=== PATIENT | female | born 2000 | race Caucasian/White ===

== ENCOUNTER 2019-05-26 15:21 | Emergency (ER) | payer OTHER ==
--- NOTE | 2019-05-26 15:48 | UC ---
Complaint Female HPI - HPI Summary HPI Summary: 19 yo female presents with urinary symptoms. She tells me that for the last 3 months she has been noticing that twice a month for 2-3 days she has urinary burning and frequency that will resolve without treatment or intervention. She notes that she gained ~10lbs unintentionally over the last month. She was scheduled to see OBGYN this , but they cancelled due to COVID concerns - - this was her initial appt for routine PAP and she was going to bring up her urinary complaint. She is sexually active, but has an IUD. She has family hx of diabetes, but no other known diseases. She has been tested via her primary for thyroid issues and diabetes over the last few years and everything has been normal. She denies SOB, chest pain, abdominal pain, n/v/d/c, flank pain, hematuria, vaginal bleeding or discharge. - History Of Current Complaint Stated Complaint: URINARY COMPLAINT Time Seen by Provider: 05/26/19 15:48 Hx Obtained From: Patient Onset/Duration: Gradual Onset Timing: Intermittent Severity Initially: Mild Severity Currently: Mild Pain Intensity: 4 Pain Scale Used: 0-10 Numeric - Allergies/Home Medications Allergies/Adverse Reactions: Allergies Allergy/AdvReac Type Severity Reaction Status Date / Time trazodone Allergy Severe See Comment Verified 05/26/19 16:04 Home Medications: Home Medications cloNIDine TAB* [Catapres 0.1 MG TAB*] 0.5 mg PO DAILY 05/26/19 [History Confirmed 05/26/19] PMH/Surg Hx/FS Hx/Imm Hx - Additional Past Medical History Additional PMH: Chronic fatigue IBS - Surgical History Surgical History: None - Family History Known Family History: Positive: None - Social History Lives: With Family Alcohol Use: None Substance Use Type: None Smoking Status (MU): Never Smoked Tobacco Review of Systems All Other Systems Reviewed And Are Negative: No Constitutional: Positive: Negative Skin: Positive: Negative Eyes: Positive: Negative ENT: Positive: Negative Respiratory: Positive: Negative Cardiovascular: Positive: Negative Gastrointestinal: Positive: Negative Genitourinary: Positive: Dysuria Neurovascular: Positive: Negative Musculoskeletal: Positive: Negative Neurological/Mental Status: Positive: Negative Psychological: Positive: Negative Physical Exam - Summary Physical Exam Summary: GENERAL: NAD. WDWN. No pain distress. SKIN: No rashes, sores, or open wounds. HEENT: Head: AT/NC Eyes: PERRLA. EOM intact. Conjunctiva clear without inflammation or discharge. Ears: Hearing grossly normal. TMs intact, no bulging, erythema, or edema. Nose: Nasal mucosa pink and moist. NTTP maxillary and frontal sinus. Throat: Posterior oropharynx without exudates, erythema, or tonsillar enlargement. Uvula midline. NECK: Supple. Nontender. No lymphadenopathy. CHEST: CTAB. No r/r/w. No accessory muscle use. Breathing comfortably and in no distress. CV: RRR. Pulses intact. Brisk cap refill. ABDOMEN: Soft. NTTP. No distention or guarding. No CVA tenderness. Bowel sounds present NEURO: Alert. PSYCH: Age appropriate behavior. Triage Information Reviewed: Yes Vital Signs: Vital Signs: Temp Pulse Resp BP Pulse Ox 98.3 F 68 12 120/75 99 05/26/19 15:52 05/26/19 15:52 05/26/19 15:52 05/26/19 15:52 05/26/19 15:52 Laboratory Tests 05/26/19 05/26/19 16:13 16:15 POC Urine Color Yellow POC Urine Clarity Clear POC Urine pH 8.5 POC Ur Specif [place] 1.015 POC Urine Protein Negative POC Ur Glucose (UA) Negative POC Urine Ketones Negative POC Urine Blood Negative POC Urine Nitrite Negative POC Urine Bilirubin Negative POC Urine Urobilinogen 0.2 POC U Leukocyte Esteras Negative POC Ur Test Negative Vital Signs Reviewed: Yes Complaint Female Dx - Course Course Of Treatment: UA negative/normal. Urine negative. Glucose fingerstick 85. I am unsure the cause of pt's symptoms, but discussed referral to Urologist or to have her keep her rescheduled appt with her OBGYN for further evaluation of this or further evaluation/pelvic exam/us today. She wishes to have a referral to Urology at this time. - Differential Dx/Diagnosis Provider Diagnosis: Dysuria Discharge ED - Sign-Out/Discharge Documenting (check all that apply): Patient Departure All imaging exams completed and their final reports reviewed: No Studies - Discharge Plan Condition: Stable Disposition: HOME Patient Education Materials: Dysuria (ED) Referrals: No Primary Care Phys,NOPCP [Primary Care Provider] - Austin Flores MD [Medical Doctor] - As Soon As Possible Additional Instructions: Your urine testing and exam were normal today. I recommend that you call Urology at the number below to schedule an appointment for further evaluation. - Billing Disposition and Condition Condition: STABLE Disposition: Home
[2019-05-26 16:02] VITALS: BP 120/75
== END 2019-05-26 16:30 | disposition home or self-care (01) ==
LOC: UCEAST 15:21
DX: R30.0 Dysuria (principal); K58.9 Irritable bowel syndrome, unspecified; Z88.8 Allergy status to other drugs, medicaments and biological substances
CPT/HCPCS: 81003; 84702; 99211; G0463

== ENCOUNTER 2020-01-11 21:03 | Inpatient (IN) ==
[2020-01-11 23:09] LABS: ABS Basophils 0.1 10^3/ul (0-0.2); ABS Eosinophils 0.2 10^3/ul (0-0.6); ABS Lymphocytes 1.6 10^3/ul (1.0-4.8); ABS Monocytes 0.8 10^3/ul (0-0.8); ABS Neutrophils 7.5 10^3/ul (1.5-7.7); Eosinophil % 1.6 %; Hematocrit 39 % (35-47); Lymphocyte % 15.5 %; Mean Corpuscular HGB Conc 34 g/dL (31-36); Mean Corpuscular Hemoglobin 29 pg (27-31); Mean Corpuscular Volume 86 fL (80-97); Mean Platelet Volume 7.6 fL (7.4-10.4); Platelet Count 240 10^3/uL (150-450); Red Blood Count 4.48 10^6 /uL (3.70-4.87); Red Cell Distribution Width 13 % (10-15); White Blood Count 10.1 10^3/uL (3.5-10.8)
[2020-01-11 23:22] LABS: ALT 8 U/L (7-52); AST 15 U/L (13-39); Albumin 4.3 g/dL (3.2-5.2); Albumin/Globulin Ratio 1.7 (1-3); Alkaline Phosphatase 83 U/L (34-104); Anion Gap 6 mmol/L (2-11); BUN/Creatinine Ratio 13.3 (8-20); Blood Urea Nitrogen 8 mg/dL (6-24); CO2 Carbon Dioxide 26 mmol/L (22-32); Calcium 9.3 mg/dL (8.6-10.3); Chloride 105 mmol/L (101-111); EGFR African American 152.7 (>60); EGFR Non-African American 126.2 (>60); Globulin 2.6 g/dL (2-4); Glucose 97 mg/dL (70-100); Potassium 3.4 mmol/L (3.5-5.0); Sodium 137 mmol/L (135-145); Total Protein 6.9 g/dL (6.4-8.9)
[2020-01-11 23:27] LABS: Acetaminophen < 15 mcg/mL; Alcohol, S < 10 mg/dL (<10); Lithium 0.37 mmol/L (0.6-1.2); Salicylate < 2.50 mg/dL (<30)
[2020-01-11 23:28] LABS: HCG Pregnancy < 0.60 mIU/mL
[2020-01-12] MEDS ORDERED: Venlafaxine XR 75 mg PO ONE (01:35)
[2020-01-12] MEDS ORDERED: Lithium Carbonate ER 450mg TAB PO ONE (02:11)
[2020-01-12 03:12] LABS: Urine Appearance Clear; Urine Bilirubin Negative (Negative); Urine Blood Negative (Negative); Urine Color Yellow; Urine Glucose Negative (Negative); Urine Ketones Negative (Negative); Urine Nitrite Negative (Negative); Urine Protein Negative (Negative); Urine Specific Gravity 1.009 (1.010-1.030); Urine Urobilinogen Negative (Negative)
[2020-01-12 03:31] LABS: Urine Benzodiazepine Screen None Detected (None Detect); Urine Cannabinoids Screen None Detected (None Detect); Urine Opiates Screen None Detected (None Detect)
[2020-01-12] MEDS ORDERED: Al Hydrox/Mg Hydrox/Simet LIQ 30 ML UDC PO PRN ×2 (09:02→14:55)
[2020-01-12] MEDS: Venlafaxine XR 75 mg PO SCH (20:53)
[2020-01-12] MEDS: CARIPRAZINE 1.5 MG PO SCH (20:57)
[2020-01-12] MEDS ORDERED: Cariprazine 4.5 MG CAPSULE PO SCH (21:00)
[2020-01-12] MEDS ORDERED: Lithium Carbonate ER 450mg TAB PO SCH (21:00)
[2020-01-13] MEDS ORDERED: Venlafaxine XR 75 mg PO SCH (09:00)
[2020-01-13] MEDS: Vitamin THERAPEUTIC TAB PO SCH (09:42)
[2020-01-13] MEDS: Lithium Carbonate ER 450mg TAB PO SCH (20:05)
[2020-01-13] MEDS: Venlafaxine XR 75 mg PO SCH (20:06)
[2020-01-13] MEDS: CARIPRAZINE 1.5 MG PO SCH (20:06)
[2020-01-14] MEDS: Vitamin THERAPEUTIC TAB PO SCH (09:55)
[2020-01-14] MEDS: Lithium Carbonate ER 450mg TAB PO SCH (21:41)
[2020-01-14] MEDS: Venlafaxine XR 75 mg PO SCH (21:42)
[2020-01-14] MEDS: CARIPRAZINE 1.5 MG PO SCH (21:42)
[2020-01-15 08:59] VITALS: BP 113/67
[2020-01-15] MEDS: Vitamin THERAPEUTIC TAB PO SCH (11:57)
== END 2020-01-15 12:00 | disposition home or self-care (01) | DRG 885 ==
LOC: ED 21:03 → BSU 01-12 09:02 → ED 01-12 14:04
PROVIDERS: ADMIT Psychiatry & Neurology Psychiatry; ATTEND Psychiatry & Neurology Psychiatry